=== PATIENT | male | born 1970 | race Caucasian/White ===

== ENCOUNTER 2021-01-28 07:24 | Observation (INO) ==
--- NOTE | 2021-01-10 10:53 | PAT Medication Instructions ---
Medication Instructions Date of Service January 10, 2021 Home Medications azathioprine [Imuran] 50 mg PO BID azathioprine [Imuran] 75 mg PO HS sertraline [Zoloft] 50 mg PO QAM ASK your prescriber and surgeon azathioprine [Imuran] 50 mg PO BID azathioprine [Imuran] 75 mg PO HS Take morning of surgery With a small sip of water, OTHERWISE NOTHING TO EAT OR DRINK AFTER MIDNIGHT: sertraline [Zoloft] 50 mg PO QAM Other Notes If you have any questions please call us at [phone] or [phone] or [phone] or [phone]
--- NOTE | 2021-01-14 09:50 | Anesthesiology Consultation ---
Date of Service January 14, 2021 Assessment & Plan (1) Encounter for pre-operative examination: Chart Review Chart Review: Acceptable Risk for Surgery (pending surgeon ordered PCP clearance, attempt at last neuromuscular office note/response from neuromuscular specialist, and preop Covid testing results ) and Patient seen in Pre Admission Testing - Awaiting surgeon ordered PCP clearance 01/21/21 - Will attempt to get last neuromuscular medicine note from [facility] - will also inquire if neuromuscular specialist has any special recommendations re garding anesthesia Per PAT appt on 01/14/21, pt resides in [facility]- local travel only. Denies any out of state travel. Wears mask in public. No known Covid positive contacts or Covid related symptoms. No known Covid infection in the past 90 days. Preop C ovid testing scheduled 01/23/21 at [facility]= will await results. Educated on importance of self quarantining, social distancing and wearing mask in public both for the patient and household contacts. Teaching & Discussion Pre-Anesthesia Teaching/Discussion Notes: Instructed NPO after midnight before surgery,except medications with 15 cc of water. Medication instructions provided according to the PAT guidelines. History Surgery Operation Date: 01/28/21 13:10 Proposed Procedures p Right Total Shoulder Arthroplasty - Josué Terrell MD Height/Weight Height: 6 ft 1 in Weight: 122.6 kg Allergies Allergy/AdvReac Type Severity Reaction Status Date / Time No Known Allergies Allergy Verified 01/09/21 15:33 Medications Home Medications Medication Instructions Recorded Confirmed Last Taken azathioprine [Imuran] 50 mg PO BID 01/09/21 01/09/21 Unknown azathioprine [Imuran] 75 mg PO HS 01/09/21 01/09/21 Unknown sertraline [Zoloft] 50 mg PO QAM 01/09/21 01/09/21 Unknown Past Medical History Medical History (Updated 01/14/21 @ 10:17 by Mariam Tate PA-C) Anxiety CIDP (chronic inflammatory demyelinating polyneuropathy) Reason for imuran Stable - follows with [facility] [place] - Ashli Starr Shama Recently started on IVIG infusions in preparation for surgery NONA (obstructive sleep apnea) Recently dx'ed- in process of getting CPAP Exercise / Class Metabolic Activity II 4-5 Yardwork/Stairs/Walk up hill (one flight of stairs- no chest pain or SOB ) Past Family History Family History Grandmother (Maternal) Family hx of colon cancer Other No family history of adverse response to anesthesia Past Surgical History Surgical History History of removal of cyst "bony cyst removed from top of forehead" History of shoulder surgery Bone spurs removed from right shoulder, 2010 Hx of vasectomy Past Anesthesia History No Hx of Anesthesia Complications and No Family Hx of Anesthesia Complications History of PONV No Hx of PONV and No Hx of Motion Sickness Social History Smoking Status: Never smoker Do You Dip or Chew Tobacco: No Hx Alcohol Use: No Hx Substance Use: No substance use type: does not use Review of Systems Hx of snoring - did have recent sleep study- in the process of getting a CPAP Patient denies chest pain, shortness of breath, dyspnea on exertion, reflux, cough, wheezing, palpitations. No hx of seizures, stroke, CA. No hx of blood clots or blood transfusions Physical Exam Vital Signs VITALS BP 112/73 P 55 TEMP 98.1 SP02 98% RESP 16 Constitutional no acute distress ENMT Mouth: no TMJ clicking Thyromental Distance: > or= 3.5 Finger Breadths (3.5) Mallampati Class: III Denies loose or missing teeth Neck + thick neck; neck extension not limited Respiratory normal respiratory effort; no respiratory distress Auscultation: lungs clear to auscultation bilaterally; no wheezes Cardiovascular Rate/Rhythm: regular rate and regular rhythm Heart Sounds: no murmur Vessels: no carotid bruit Musculoskeletal Spine: no pain with cervical ROM Extremities: extremities normal to inspection Psychiatric Orientation: alert Testing Laboratory Results 01/14/21 10:22 01/14/21 10:22 PT 9.7 Seconds (9.0-12.0) 01/14/21 10: INR 1.0 (0.9-1.1) 01/14/21 10:22 APTT 24.5 Seconds (21.0-31.0) 01/14/21 10:22 Hemoglobin A1c 5.9 % (4.5-5.6) H 01/14/21 10:22 Urine Color Yellow 05/03/21 10:22 Urine Appearance Clear (Clear) 01/14/21 10:22 Urine pH 5.0 (4.5-7.5) 01/14/21 10:22 Ur Specific [place] 1.025 (1.000-1.030) 01/14/21 10:22 Urine Protein Negative (Negative) 01/14/21 10:22 Urine Glucose (UA) Negative (Negative) 01/14/21 10:22 Urine Ketones Trace (Negative) H 01/14/21 10:22 Urine Nitrite Negative (Negative) 01/14/21 10:22 Ur Leukocyte Esterase Negative (Negative) 01/14/21 10:22 Blood Type A Positive 01/14/21 10: Antibody Screen NEGATIVE 01/14/21 10:22 Electrocardiogram Date: 01/14/21 Findings: + SB @ (50bpm) Otherwise normal EKG per cardio. Chest X-Ray Date: 01/14/21 Findings: + NAD Cardiomediastinal and hilar silhouettes are within normal limits. No pneumothorax, pleural effusion, airspace consolidation or overt pulmonary edema. The lateral left costophrenic angle is partially excluded from the field-of-vi ew. Degenerative changes of the shoulders and spine.
--- NOTE | 2021-01-14 10:57 | XRay Report ---
XR chest Pre-admission PA/Lat HISTORY: 50 years-old Male pat chronic degenerative joint disease COMPARISON: None TECHNIQUE: PA and lateral views of the chest FINDINGS: Cardiomediastinal and hilar silhouettes are within normal limits. No pneumothorax, pleural effusion, airspace consolidation or overt pulmonary edema. The lateral left costophrenic angle is partially exc luded from the [id number]. Degenerative changes of the shoulders and spine. IMPRESSION: No acute process. ACT 112: Negative or not required by law. The above report was generated using voice recognition software. It may contain grammatical, syntax o r spelling errors. Electronically signed by: Isidro Blankenship M.D. 01/14/2021 10:56 AM
[2021-01-14 10:58] LABS: Eosinophils # (auto) 0.03 K/uL (0-0.5); Eosinophils % (auto) 0.9 %; Hematocrit (blood only) 42.2 % (42-52); Hemoglobin 14.8 g/dL (14.0-18.0); Lymphocytes # (auto) 0.95 K/uL (1.2-3.4); Lymphocytes % (auto) 28.2 %; Mean Corpuscular Hemoglobin 30.6 pg (25-34); Mean Corpuscular Hgb Conc 35.1 g/dL (32-36); Mean Corpuscular Volume 87.2 fL (80-100); Mean Platelet Volume 10.1 fL (7.4-10.4); Monocytes # (auto) 0.25 K/uL (0.11-0.59); Monocytes % (auto) 7.4 %; Neutrophils # (auto) 2.14 K/uL (1.4-6.5); Neutrophils % (auto) 63.5 %; Platelet Count 241 K/uL (130-400); RDW Coefficient of Variation 13.7 % (11.5-14.5); RDW Standard Deviation 43.5 fL (36.4-46.3); Red Blood Count 4.84 M/uL (4.7-6.1); White Blood Count 3.37 K/uL (4.8-10.8)
[2021-01-14 11:00] LABS: Appearance Urine Clear (Clear); Bilirubin Urine Negative (Negative); Blood Urine Negative (Negative); Color Urine Yellow; Glucose Urine UA Negative (Negative); Ketones Urine Trace (Negative); Leukocyte Esterase Urine Negative (Negative); Nitrite Urine Negative (Negative); Protein Urine Negative (Negative); Specific Gravity Urine 1.025 (1.000-1.030); Urobilinogen Urine Negative (Negative)
[2021-01-14 11:21] LABS: Partial Thromboplastin Ratio 0.9; Partial Thromboplastin Time 24.5 Seconds (21.0-31.0); Prothrombin Time 9.7 Seconds (9.0-12.0)
[2021-01-14 12:01] LABS: Estimated Average Glucose 123 mg/dl; Hemoglobin A1C 5.9 % (4.5-5.6)
[2021-01-14 12:16] LABS: Albumin Level 3.4 gm/dl (3.4-5.0); BUN Creatinine Ratio 23.5 (10-20); Calcium 9.3 mg/dl (8.5-10.1); Creatinine Clr Calc Pharmacy 153.4 ml/min; Est GFR (African American) 121.4; Est GFR (Non-African American) 104.7
--- NOTE | 2021-01-14 12:37 | Electrocardiogram Report ---
Test Reason : Blood Pressure : / mmHG Vent. Rate : 050 BPM Atrial Rate : 050 BPM P-R Int : 196 ms QRS Dur : 080 ms QT Int : 412 ms P-R-T Axes : 064 075 038 degrees QTc Int : 375 ms Sinus bradycardia Otherwise normal ECG No previous ECGs available Confirmed by Zane Kowalski ([id number]) on 01/14/2021 12:37:26 PM Referred By: Josué Terrell Confirmed By:Zane Kowalski
--- NOTE | 2021-01-26 20:12 | History & Physical Report ---
Date of Service January 26, 2021 Assessment & Plan (1) Primary osteoarthritis, right shoulder: Treatment options discussed with patient. He has failed conservative measures. He would like to proceed with surgical intervention. Risks, benefits and alternatives to surgery including but not limited to infection, DVT, pain, stiffness, need for revision surgery, damage to blood vessels, damage to nerves, PE, , were discussed with the patient and they wish to proceed. Plan for right OVO motion total shoulder arthroplasty at [facility] on . He cannot stop the Imuran other than the day of surgery. Will plan on 2 weeks for cefadroxil post operatively as a precaution due to increased risk of infection with the Imuran. All questions answered. Patient will follow up post operatively. History of Present Illness Chief Complaint: Right shoulder pain Primary Care Provider: NO PCP 50 year old male with PMHx significant for CIDP on Imuran and IVIG therapy, axiety, and NONA presents with longstanding right shoulder pain. He has endstage OA right shoulder. Pain interfering with his daily activities. He has tried and failed conservative measures and would like to proceed with surgical intervention. Patient denies headaches, sweats, fevers, chills, double vision, blurred vision, cough, sore throat, dysphagia, chest pain, sob, wheezing, n/v/ d/c, numbness, tingling, fatigue, urinary symptoms, mood disorders. ROS positive for right shoulder pain and stiffness. Allergies Allergy/AdvReac Type Severity Reaction Status Date / Time No Known Allergies Allergy Verified 01/09/21 15:33 Home Medications Medication Instructions Recorded Confirmed Type azathioprine [Imuran] 50 mg PO BID 01/09/21 01/09/21 History azathioprine [Imuran] 75 mg PO HS 01/09/21 01/09/21 History sertraline [Zoloft] 50 mg PO QAM 01/09/21 01/09/21 History Past Med/Surg History Medical History (Updated 01/26/21 @ 20:21 by Sandro Pastrana) Anxiety CIDP (chronic inflammatory demyelinating polyneuropathy) Reason for imuran Stable - follows with Sandro [place] - Ashli Starr Shama Recently started on IVIG infusions in preparation for surgery NONA (obstructive sleep apnea) Recently dx'ed- in process of getting CPAP Surgical History History of removal of cyst "bony cyst removed from top of forehead" History of shoulder surgery Bone spurs removed from right shoulder, 2010 Hx of vasectomy Family History Grandmother (Maternal) Family hx of colon cancer Other No family history of adverse response to anesthesia Social History (Updated 10/04/19 @ 14:25 by Kaley Bernal) Smoking Status: Never smoker Second Hand Exposure: Yes (in childhood--father smoked); Hx Alcohol Use: No Hx Substance Use: No Preferred Language: Estonian Communication Ability: Effective Supervisor Nuclear Medicine Required: No Beliefs That Will Affect Care: None Current Living Situation: Significant Other Feels Safe at Home: Yes Assistive Devices: None Review of Systems All systems reviewed & are unremarkable except as noted in HPI & below Physical Exam Constitutional: well developed and well nourished; no acute distress Eyes: PERRL, conjunctivae normal, anicteric sclerae ENMT: external ear and nose normal, oropharynx normal Neck: trachea midline, no thyromegaly Respiratory: normal respiratory effort, lungs clear to auscultation Cardiovascular: RRR, no murmur, no edema Musculoskeletal: Right shoulder: Diffuse tenderness, tender anterior glenoid. Pain and crepitation with active ROM. Edis deformity due to previous biceps tendon rupture. Active FF to 70 degrees, abduction to 60 degrees, ER to 10 degrees. Strength equal bilaterally Skin: no rashes, warm and dry Neurologic: patellar DTR's 2+ bilat, sensation intact Psychiatric: A+Ox3, euthymic affect Results & Data ([facility]) Diagnostic Findings Right shoulder: 4 views right shoulder. End-stage osteoarthritis with flattening of the humeral head, loss of glenohumeral joint space, large inferior humeral head osteophyte, subchondral cyst and sclerosis formation. MRI demonstrates eburnation subchondral bone edema possible some subchondral collapse of the humeral head with degeneration glenoid labrum and large intra- articular loose bodies and subcoracoid recess area
[~2021-01-28 07:24] MED LIST: ACETAMINOPHEN 500 MG TAB PO SCH; CeleBREX 200 MG CAP PO SCH; FAMOTIDINE 20 MG TAB PO SCH; GABAPENTIN 900 MG DOSE PO SCH; LR 15ML/HR IV SCH; METOCLOPRAMIDE HCL 10 MG TABLET PO SCH; TRANEXAMIC ACID 1,000 MG **IV Intra-op IV SCH; TRANEXAMIC ACID 1,000 MG **IV Pre-op IV SCH; dexAMETHasone 4 MG TAB PO SCH
[2021-01-28] MEDS ORDERED: BUPIVACAINE 0.5 % 5 MG/1 ML PF 10ML VIAL ONE (07:29)
[2021-01-28] MEDS ORDERED: DEXAMETHASONE SOD INJ 4 MG/ML VIAL ONE (08:46)
[2021-01-28] MEDS ORDERED: PROPOFOL IV EMULSION 10 MG/ML 20 ML VIAL IV ONE (08:46)
[2021-01-28] MEDS ORDERED: ONDANSETRON INJ 2 MG/ML 2 ML VIAL ONE (08:46)
[2021-01-28] MEDS ORDERED: GLYCOPYRROLATE 0.2 MG/ML VIAL ONE ×2 (08:46→12:04)
[2021-01-28] MEDS ORDERED: LIDOCAINE HCL 2% 2 ML VIAL/AMP(20MG/ML) INFIL ONE (08:46)
[2021-01-28] MEDS ORDERED: NEOSTIGMINE METHYLSULFATE 5 MG/5 ML SYR ONE (08:46)
[2021-01-28] MEDS ORDERED: MIDAZOLAM HCL 1 MG/ML 2ML VIAL ONE ×2 (08:46→08:47)
[2021-01-28] MEDS ORDERED: fentaNYL citrate 100 MCG/2 ML VIAL ONE ×2 (08:47→11:56)
--- NOTE | 2021-01-28 09:59 | History & Physical Bridge Note ---
Date of Service January 28, 2021 History & Physical Bridge Note I have examined the patient, reviewed the History & Physical and in the interval since the performance of the History & Physical I have noted the following changes of clinical significance: no changes noted
[2021-01-28] MEDS ORDERED: fentaNYL citrate 100 MCG/2 ML VIAL IV PRN (10:10)
[2021-01-28] MEDS ORDERED: ONDANSETRON INJ 2 MG/ML 2 ML VIAL IV PRN ×2 (10:10→15:32)
[2021-01-28] MEDS ORDERED: ePHEDrine sulfate 50 MG/ML AMP IV PRN (10:10)
[2021-01-28] MEDS ORDERED: ATROPINE SULFATE 0.1 MG/ML 10ML SYR IV PRN (10:10)
[2021-01-28] MEDS ORDERED: EPINEPHrine HCL INJ 1 MG/ML 30ML ONE (10:21)
[2021-01-28] MEDS ORDERED: SUGAMMADEX SODIUM 200 MG/2 ML VIAL IV ONE (10:27)
[2021-01-28] MEDS ORDERED: ROCURONIUM BROMIDE 10 MG/ML 5 ML VIAL IV ONE (11:47)
[2021-01-28] MEDS ORDERED: ePHEDrine sulfate 50 MG/ML AMP ONE (12:04)
--- NOTE | 2021-01-28 14:15 | Operative Report ---
Post Operative Report Pre & Post Diagnosis Operation Date: 01/28/21 09:50 Pre-Op Diagnosis: Primary Osteoarthritis, Right Shoulder Post-Op Diagnosis: Primary Osteoarthritis, Right Shoulder, biceps tendinopathy with multiple loose bodies biceps tendon sheath, multiple glenohumeral and subcoracoid loose bodies I identified the patient and participated in the time-out.: Yes Procedure Operation Date: 01/28/21 09:50 Actual Procedures p Right Total Shoulder Arthroplasty(Right), biceps tenodesis, removal of multiple loose bodies largest approximately 2 x 1 cm subcoracoid and smallest 2 mm- Josué Terrell MD Surgeon Josué Terrell MD Vice President Integrated Humberto ALBERTO Estimated Blood Loss 50 Findings Consistent with Post-Op Diagnosis Grade 4 osteoarthritis of the shoulder chronic synovitis multiple loose bodies biceps tendinopathy chronic biceps tenosynovitis Specimens None Drains 2 Hemovac Anesthesia Type General Regional Complications none Disposition Accompanied Patient To Recovery: No Disposition: Recovery Room Indications 50-year-old male with chronic progressive osteoarthritis in his right shoulder. Radiographs demonstrate severe end-stage osteoarthritis large inferior humeral osteophytes loose bodies and [id number] Description of Procedure Patient was placed placed under regional block and general anesthetic. The right upper extremity had a towel roll placed on the medial border of the scapula and translated to the side of the bed so it could be manipulated off of the bed as necessary. A foam headrest was placed and protective eyewear was placed. Lower extremities were well-padded. Patient was positioned in a beachchair position approximately 40 degrees. Shoulder exam demonstrated an obese arm and shoulder area. Forward flexion was 130 degrees abduction was 70 degrees external rotation was 30 degrees and rotation was 40 degrees. The right upper extremity was prepped and draped in sterile fashion. A deltopectoral approach was performed with a longitudinal incision in a deltopectoral interval. The skin was incised sharply and the subcutaneous flaps were elevated. The cephalic vein was dissected out and retracted laterally with the deltoid. The clavipectoral fascia was divided at the lateral margin of the conjoined tendon and extended up to the CA ligament. A self-retaining retractor was placed. Biceps findings demonstrated marked biceps tendinopathy and chronic tenosynovitis with multiple loose bodies within the biceps tendon sheath. A biceps tenosynovectomy was performed and the multiple loose bodies were resected.. Biceps tendon was tenodesed to the pectoralis with [id number] #2 FiberWire sutures. The chronic tenosynovitis was resected and the proximal biceps resected. The circumflex vessels were tied off with silk ties and divided laterally. The subscapularis muscle fibers were at the level of the circumflex vessels dissection was taken down to the capsule and a Kitner elevator was used to release the inferior fibers of the capsule protecting the axillary nerve inferiorly. A blunt Hohmann retractors were placed between the inferior located axillary nerve and the capsule. This was verified with a tug test. The rotator interval was opened up and extended down to the glenoid. The subscapularis was taken down with a transtendinous incision leaving a cuff of tissue for repair on the lesser tuberosity. The incision was carried through the subscapularis to the capsule and then subperiosteally along the inferior capsule exposing the inferior humeral osteophytes. These demonstrated very large inferior humeral osteophytes from anterior to posterior.. The osteophytes were resected with an artist chisel and rongeur. The humeral head findings demonstrated central region of bone loss with red softened irritated bone more softened and eburnated. There is grade 4 osteoarthritis and humeral head with circumferential osteophytes. More osteophytes were resected around the humeral articular surface. After the osteophytes were resected humeral head was retracted posterior to the glenoid with a Fukuda retractor. The glenoid findings demonstrated 50% of the glenoid was close to being down to bone with almost a B2 type beginning of the arthritic wear. The superior articular surface was still intact the anterior articular surface was still intact it was mostly the posterior inferior 45% of the glenoid that had wear.. The labrum was resected and the biceps tendon resected. A 360 degree release of the subscapularis was performed. Appropriate releases were performed about the glenoid. Subperiosteal release with electrocautery on the glenoid anterior and inferior and also utilizing a small Moreno elevator to perform that release. Upon completion of the releases the humeral head was reexposed with retractors and humeral head was sized for a size 52 x 48 Arthrosurface OVO motion humeral head. The central guidepin was placed. The threaded stop for the reamer was drilled into the head. This was placed at the appropriate depth slightly proud due to the bone loss to help reestablish normal height of the bone.. The head reamer was used. All debris was irrigated out of the joint. The flat head resection reamer was used. The remaining section of bone was removed with a saw. The humerus was then retracted posteriorly again with the Fukuda retractor posterior to the glenoid. I did a curette at the inferior aspect but were going to place the implant creating all the remaining cartilage office we can get the true version of the glenoid. The superior cartilage was left intact. The guide for the glenoid component was placed and the guide pin was advanced to the appropriate depth. Glenoid reamers were utilized. The depth gauge verified the depth of the reaming. The drill hole for the central post was placed. Trial component was placed at satisfactory position and depth. Trial was removed and the glenoid reamed area was prepared for cementing with several drill holes placed around the reamed area to accept cement. After further irrigation the reamed area was packed with epinephrine soaked tampon sponges. The [place] cement was vacuum mixed. The cement was injected into the glenoid and compressed with a finger compression device. More cement was placed on the back of the glenoid component and it was inserted into the reamed area in appropriate position with the suction device that held onto the component. When the component was appropriate seating position the suction was removed as well as a suction device and direct pressure was placed on of the component and excess cement was cleared and the component was held in position until the cement fully cured. Attention was taken back to the humerus. The humeral head guide was placed onto the humeral head in the appropriate position. The 12 mm tapered post was inserted to appropriate depth with excellent fixation. At this time 3 drill holes were made along the lateral surface of the lesser tuberosity spanning the distance of the subscapularis attachment and 3 transosseous #5 FiberWire sutures were placed for repair of the subscapularis. After copious irrigation the Mckeon taper of the tapered post was dried and then the humeral component size 48 x 52 OVO motion Arthrosurface humeral head component was impacted onto the taper post with stable fixation. This was assessed with a Moreno elevator to be stable. This was then reduced to the glenoid and range of motion and stability was assessed. After copious irrigation the subscapularis was repaired with the #5 FiberWire sutures using Mars-Howard suture technique and lateral row soft tissue repair with #2 FiberWire [id number]-gn-[id number] sutures and the rotator interval was closed in maximal external rotation with interrupted #2 FiberWire sutures. Pectoralis tendon was repaired with [id number]-wm-[id number] 2-0 FiberWire suture in f akrgq-gy-[id number] fashion passing sutures through the biceps tendon to reinforce the biceps tenodesis. Range of motion was assessed demonstrating 150 degrees forward elevation 90 degrees abduction external rotation 70 degrees and rotation 60 degrees without any tension on the repair. The wound was copiously irrigated and 2 Hemovac drains were placed brought out laterally. The deltopectoral interval was repaired with tlbdnx-eh-rytwj #1 Vicryl sutures and the subcutaneous tissues were closed into 2-0 Vicryl sutures and skin closed with tim and services were applied and a shoulder immobilizer. The patient tolerated the procedure well. Humberto ALBERTO my physician advertising assistant assisted in the procedure with arm positioning soft tissue retraction instrument management suture management and performed the subcutaneous and skin closure dressings and shoulder immobilizer application and will participate in the postop care the patient. I attest to the content of the Intraoperative Record and any orders documented therein. Any exceptions are noted below.
--- NOTE | 2021-01-28 14:50 | XRay Report ---
XR shoulder RT min 2V routine CLINICAL HISTORY: Post shoulder surgery COMPARISON STUDY: None. FINDINGS: 2 views of the right shoulder demonstrate resurfacing at the humeral head. The hardware denise ears intact. No fracture or dislocation. Skin tim and surgical drains are in place. IMPRESSION: Status post right humeral head resurfacing. The hardware appears intact. ACT 112: Negative or not required by law. Electronically signed by: Jack Tripp M.D. 01/28/2021 2:49 PM
--- NOTE | 2021-01-28 14:53 | Anesthesiology Progress Note ---
Date of Service January 28, 2021 Anesthesia Post Procedure Vital Signs Vital Signs: Temp Pulse Pulse Resp BP Pulse Ox 01/28/21 14:50 37.4 C 80 14 139/88 92 01/28/21 14:40 85 18 148/90 H 90 01/28/21 14:30 91 H 19 136/71 90 01/28/21 14:20 81 19 143/92 H 90 01/28/21 14:13 37.0 C 80 16 141/90 H 94 01/28/21 08:31 37 C 62 18 123/87 95 Transfer of Care Handoff Completed per policy Notes Mental Status: alert / awake / arousable Patient Amnestic to Procedure: Yes Nausea / Vomiting: adequately controlled Pain: adequately controlled Airway Patency, RR, SpO2: stable & adequate BP & HR: stable & adequate Hydration State: stable & adequate Anesthetic Complications: no major complications apparent
[2021-01-28] MEDS ORDERED: MAGNESIUM HYDROXIDE SUSP 30 ML UDC PO PRN (15:32)
[2021-01-28] MEDS ORDERED: TAMSULOSIN HCL 0.4 MG CAP PO PRN (15:32)
[2021-01-28] MEDS ORDERED: NALOXONE HCL 0.4 MG/1 ML VIAL/CARP IV PRN (15:32)
[2021-01-28] MEDS ORDERED: HYDROmorphone INJ 0.5 MG/0.5 ML SYR IV PRN (15:32)
[2021-01-28] MEDS ORDERED: bisacodyL 10 MG SUPP PR PRN (15:32)
[2021-01-28] MEDS ORDERED: METOCLOPRAMIDE HCL INJ 5 MG/ML 2 ML VIAL IV PRN (15:32)
--- NOTE | 2021-01-28 15:52 | Hospitalist Consultation ---
Date of Consultation January 28, 2021 Assessment & Plan (1) Primary osteoarthritis, right shoulder: Patient underwent right total shoulder arthroplasty on 01/28/[address] Josué Terrell pain medications and dressing changes will be held with the surgical team (2) CIDP (chronic inflammatory demyelinating polyneuropathy): Patient typically taking 3 weeks IVIG last dose 01/25/2021, remains on azathioprine 175 a day given in divided doses of 50 at 8 AM 50 at lunch and 75 at bedtime Patient was first diagnosed in 2004 eventually had this stabilized in 2005 with a combination of IgG and Imuran dosing. This was through [facility] neurology. Patient then in 2010 was doing well and was eventually tapered off all treatment. Patient was doing well until the fall 2019 when he had remission of his weakness and was reinitiated on the IgG and Imuran dosing which he remains on till today. The reinstitution of these medications resolved his neurological weakness. His neurologist is aware of his surgery want to keep him on this dosing through his surgical convalescence and then consider tapering him once again as he is returned to full function (3) Impaired glucose tolerance: Patient has a history of impaired glucose tolerance at one time being on Metformin he was given intraoperative dexamethasone 8 mg. Will not institute pursue sliding scale at this time but if his glucoses are elevated on morning serology consideration for tighter glucose control could be warranted (4) NONA (obstructive sleep apnea): (5) Anxiety: Maintain home Zoloft therapy History of Present Illness Attending Physician: Josué Terrell MD 01/28/21 Right Total Shoulder Arthroplasty Patient has history of chronic inflammatory demyelinating polyneuropathy who is been maintained on Imuran and immunoglobulin IgG therapy since 2005 with attempts at reducing his therapy resulting in recurrence of symptoms, subsequently the patient sees [facility] neurology for this and was cleared medically to proceed with surgery on these medications. Otherwise he is impaired glucose tolerance but last A1c was 6 does suffer from obstructive sleep apnea and depression otherwise Allergies Allergy/AdvReac Type Severity Reaction Status Date / Time No Known Allergies Allergy Verified 01/28/21 08:21 Home Medications Medication Instructions Recorded Confirmed Type azathioprine [Imuran] 50 mg PO BID 01/09/21 01/28/21 History azathioprine [Imuran] 75 mg PO HS 01/09/21 01/28/21 History sertraline [Zoloft] 50 mg PO QAM 01/09/21 01/28/21 History Patient History Medical History (Updated 01/28/21 @ 15:51 by John Farley MD) Anxiety CIDP (chronic inflammatory demyelinating polyneuropathy) Reason for imuran Stable - follows with [facility] - [facility] Sesay Recently started on IVIG infusions in preparation for surgery NONA (obstructive sleep apnea) Recently dx'ed- in process of getting CPAP Surgical History History of removal of cyst "bony cyst removed from top of forehead" History of shoulder surgery Bone spurs removed from right shoulder, 2010 Hx of vasectomy Family History Grandmother (Maternal) Family hx of colon cancer Other No family history of adverse response to anesthesia Social History (Updated 10/04/19 @ 14:25 by Kaley Bernal) Smoking Status: Never smoker Second Hand Exposure: Yes (in childhood--father smoked); Do You Dip or Chew Tobacco: No; Tobacco Cessation Education Requested by Patient: No Hx Alcohol Use: No Hx Substance Use: No Preferred Language: Kyrgyz Communication Ability: Effective 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 Beliefs That Will Affect Care: None Current Living Situation: Significant Other Other Information That Helps Us Care for You: No Feels Safe at Home: Yes Safety Concerns: Feels Safe At This Time Assistive Devices: None Review of Systems Review of Systems: Mild distress and fatigue no headache, blurry or double vision no speech or swallowing issues no chest pain, pressure or palpitations no shortness of breath, cough or wheezes no abdominal pain, nausea or vomiting, diarrhea or constipation no dysuria, hematuria or frequency no focal joint pain or swelling no back pain, CVA tenderness or radicular pain no bruising, bleeding or rashes no focal signs of weakness or numbness or altered sensation no complaints of anxiety or depression.. Physical Exam Physical Exam: The patient appeared well nourished and normally developed. Vital signs as documented. Head exam is normocephalic atraumatic Neck is without JVD, thyromegaly, or carotid bruits. Lungs are clear to auscultation, no focal loss of breath sounds Cardiac exam, Rhythm is regular.. No murmurs, rubs or gallops. Abdominal exam reveals normal bowel sounds, soft non tender, no masses Extremities are nonedematous and both pedal pulses are present Neurologic exam is alert and oriented, no focal loss of strength or sensation Skin is without bruises or rashes Psychologically is without concerns for anxiety or depression Results & Data Results & Data ([facility]) Vital Signs (Past 12 Hours) Vital Signs Temp Pulse Pulse Resp BP Pulse Ox 01/28/21 15:10 99.3 F 86 22 138/94 92 01/28/21 15:00 99.3 F 88 17 145/92 H 92 01/28/21 14:50 99.3 F 80 14 139/88 92 01/28/21 14:40 85 18 148/90 H 90 01/28/21 14:30 91 H 19 136/71 90 01/28/21 14:20 81 19 143/92 H 90 01/28/21 14:13 98.6 F 80 16 141/90 H 94 01/28/21 08:31 98.6 F 62 18 123/87 95 PG Care Time/CCT Total # of Minutes Spent Total Time Spent with Patient: Total time spent is greater than 50% in coordination of care (as documented) at patient's floor/unit and/or counseling patient: Coding Level of Care Code 57109 Inpt Consult Level 4 Diagnoses Primary osteoarthritis, right shoulder M19.011 CIDP (chronic inflammatory demyelinating polyneuropathy) G61.81 Impaired glucose tolerance R73.02 NONA (obstructive sleep apnea) G47.33 Anxiety F41.9
[2021-01-28] MEDS: SODIUM CHLORIDE 0.9% 1000ML 1,000 ML IV SCH (16:07)
[2021-01-28] MEDS: ceFAZolin 2000MG 2,000 MG/15 ML SYR IV SCH (17:21)
--- NOTE | 2021-01-28 19:02 | Operative Report (OR) ---
DATE OF OPERATION: 01/28/2021 ADDENDUM Once the glenohumeral joint was exposed, we did notice there was a large subcoracoid loose body, which was about a 1 x 2 cm. There was another smaller one along with it. This was excised. Also within the joint, there were multiple loose bodies embedded in the synovium. Possibly this could be a sign of. Dictation Ends Here I attest to the content of the Intraoperative Record and any orders documented therein. Any exception s are noted below.
--- NOTE | 2021-01-28 19:04 | Operative Report (OR) ---
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 I attest to the content of the Intraoperative Record and any orders documented therein. Any exception s are noted below.
[2021-01-28] MEDS: DOCUSATE SODIUM 100 MG CAP PO SCH (20:36)
[2021-01-28] MEDS ORDERED: SENNA 8.6 MG TAB PO SCH (21:00)
[2021-01-28] MEDS: ACETAMINOPHEN 500 MG TAB PO SCH (21:54)
[2021-01-29] MEDS: ceFAZolin 2000MG 2,000 MG/15 ML SYR IV SCH (01:47)
[2021-01-29] MEDS: SODIUM CHLORIDE 0.9% 1000ML 1,000 ML IV SCH (02:53)
[2021-01-29] MEDS: ACETAMINOPHEN 500 MG TAB PO SCH ×2 (05:52→13:01)
[2021-01-29 06:57] LABS: Hematocrit (blood only) 40.7 % (42-52); Hemoglobin 14.1 g/dL (14.0-18.0); Immature Granulocytes # (auto) 0.01 K/uL (0.00-0.02); Immature Granulocytes % (auto) 0.2 %; Lymphocytes # (auto) 0.67 K/uL (1.2-3.4); Lymphocytes % (auto) 11.6 %; Mean Corpuscular Hemoglobin 31.1 pg (25-34); Mean Corpuscular Hgb Conc 34.6 g/dL (32-36); Mean Corpuscular Volume 89.6 fL (80-100); Mean Platelet Volume 10.1 fL (7.4-10.4); Monocytes # (auto) 0.54 K/uL (0.11-0.59); Monocytes % (auto) 9.3 %; Neutrophils # (auto) 4.56 K/uL (1.4-6.5); Neutrophils % (auto) 78.9 %; Platelet Count 227 K/uL (130-400); RDW Coefficient of Variation 14.1 % (11.5-14.5); RDW Standard Deviation 46.4 fL (36.4-46.3); Red Blood Count 4.54 M/uL (4.7-6.1); White Blood Count 5.78 K/uL (4.8-10.8)
[2021-01-29 07:28] LABS: BUN Creatinine Ratio 19.8 (10-20); Calcium 8.3 mg/dl (8.5-10.1); Creatinine Clr Calc Pharmacy 148.1 ml/min; Est GFR (African American) 119.5 ml/min; Est GFR (Non-African American) 103.1 ml/min; Potassium 4.4 mmol/L (3.5-5.1)
--- NOTE | 2021-01-29 08:05 | Orthopedic Progress Note ---
Date of Service January 29, 2021 Assessment & Plan (1) Primary osteoarthritis, right shoulder: Postop day 1 status post right total shoulder arthroplasty PT/OT protocols. Nonweightbearing on the right upper extremity. DVT prophylaxis and pain management as written. DC planning-outpatient PT when discharged home Admission and Anticipated Discharge Date Admission Date: January 28, 2021 Subjective Postop day 1 Patient currently sitting up in bed awake and alert. No complaints this morning. He feels that his block is still working on the upper part of his extremity. He states that he has some residual numbness in his right thumb. States all other fingers have normal sensation. Denies shortness of breath, chest pain, lightheadedness. Pain is controlled. Physical Exam Physical Exam: Dressings are clean, dry, and intact. Mild residual numbness in his right thumb however he has good range of motion of his fingers and wrist and has good strength. Cap refills less than 2 seconds. Hemovac had 25 mL from the previous shift. Results & Data ([facility]) Vital Signs (Past 12 Hours) Vital Signs Temp Pulse Resp BP Pulse Ox 01/29/21 02:51 36.5 C 69 18 144/93 H 90 01/28/21 23:21 37.2 C 85 20 130/87 91 Laboratory Results Laboratory Results WBC 5.78 K/uL (4.8-10.8) 01/29/21 06:15 RBC 4.54 M/uL (4.7-6.1) L 01/29/21 06:15 Hgb 14.1 g/dL (14.0-18.0) 01/29/21 06:15 Hct 40.7 % (42-52) L 01/29/21 06:15 MCV 89.6 fL (80-100) 01/29/21 06:15 MCH 31.1 pg (25-34) 01/29/21 06:15 MCHC 34.6 g/dL (32-36) 01/29/21 06:15 RDW Std Deviation 46.4 fL (36.4-46.3) H 01/29/21 06:15 RDW Coeff of [place] 14.1 % (11.5-14.5) 01/29/21 06:15 Plt Count 227 K/uL (130-400) 01/29/21 06:15 MPV 10.1 fL (7.4-10.4) 01/29/21 06:15 Immature Gran % (Auto) 0.2 % 01/29/21 06:15 Neut % (Auto) 78.9 % 01/29/21 06:15 Lymph % (Auto) 11.6 % 01/29/21 06:15 [place] % (Auto) 9.3 % 01/29/21 06:15 Eos % (Auto) 0.0 % 01/29/21 06:15 Baso % (Auto) 0.0 % 01/29/21 06:15 Neut # (Auto) 4.56 K/uL (1.4-6.5) 01/29/21 06:15 Lymph # (Auto) 0.67 K/uL (1.2-3.4) L 01/29/21 06:15 [place] # (Auto) 0.54 K/uL (0.11-0.59) 01/29/21 06:15 Eos # (Auto) 0.00 K/uL (0-0.5) 01/29/21 06:15 Baso # (Auto) 0.00 K/uL (0-0.2) 01/29/21 06:15 Immature Gran # (Auto) 0.01 K/uL (0.00-0.02) 01/29/21 06:15 PT 9.7 Seconds (9.0-12.0) 01/14/21 10:22 INR 1.0 (0.9-1.1) 01/14/21 10:22 APTT 24.5 Seconds (21.0-31.0) 01/14/21 10:22 PTT Ratio 0.9 01/14/21 10:22 Sodium 138 mmol/L (136-145) 01/29/21 06:15 Potassium 4.4 mmol/L (3.5-5.1) 01/29/21 06:15 Chloride 105 mmol/L (98-107) 01/29/21 06:15 Carbon Dioxide 32 mmol/L (21-32) 01/29/21 06:15 Anion Gap 1.0 (3-11) L 01/29/21 06:15 BUN 16 mg/dl (7-18) 01/29/21 06:15 Creatinine 0.82 mg/dl (0.6-1.4) 01/29/21 06:15 Est Cr Clr Drug Dosing 148.1 ml/min 01/29/21 06:15 Est GFR ( Amer) 119.5 ml/min 01/29/21 06:15 Est GFR (Non-Af Amer) 103.1 ml/min 01/29/21 06:15 BUN/Creatinine Ratio 19.8 (10-20) 01/29/21 06:15 Glucose 125 mg/dl (70-99) H 01/29/21 06:15 Estimat Average Glucose 123 mg/dl 01/14/21 10:22 Hemoglobin A1c 5.9 % (4.5-5.6) H 01/14/21 10:22 Calcium 8.3 mg/dl (8.5-10.1) L 01/29/21 06:15 Albumin 3.4 gm/dl (3.4-5.0) 01/14/21 10:22 Urine Color Yellow 01/14/21 10:22 Urine Appearance Clear (Clear) 01/14/21 10:22 Urine pH 5.0 (4.5-7.5) 01/14/21 10:22 Ur Specific [place] 1.025 (1.000-1.030) 01/14/21 10:22 Urine Protein Negative (Negative) 01/14/21 10:22 Urine Glucose (UA) Negative (Negative) 01/14/21 10:22 Urine Ketones Trace (Negative) H 01/14/21 10:22 Urine Blood Negative (Negative) 01/14/21 10:22 Urine Nitrite Negative (Negative) 01/14/21 10:22 Urine Bilirubin Negative (Negative) 01/14/21 10:22 Urine Urobilinogen Negative (Negative) 01/14/21 10:22 Ur Leukocyte Esterase Negative (Negative) 01/14/21 10:22 COVID-19 Eval Order Covid19 [facility] 01/28/21 07:46 SARS-CoV-2, RNA, NAAT NEGATIVE (NEGATIVE) 01/28/21 07:46 Blood Type A Positive 01/14/21 10:22 Antibody Screen NEGATIVE 01/14/21 10:22 Electronically signed by: Isidro Blankenship M.D. 01/14/2021 10:56 AM Shoulder X-Ray 01/28/21 14:19 XR shoulder RT min 2V routine CLINICAL HISTORY: Post shoulder surgery COMPARISON STUDY: None. FINDINGS: 2 views of the right shoulder demonstrate resurfacing at the humeral head. The hardware appears intact. No fracture or dislocation. Skin tim and surgical drains are in place. IMPRESSION: Status post right humeral head resurfacing. The hardware appears intact. ACT 112: Negative or not required by law. Electronically signed by: Jack Tripp M.D. 01/28/2021 2:49 PM
--- NOTE | 2021-01-29 08:11 | Hospitalist Progress Note ---
Date of Service January 29, 2021 Assessment & Plan (1) Primary osteoarthritis, right shoulder: POD# 1 s/p right total shoulder arthroplasty on 01/28/[address] Josué Terrell h/h 14.1/40.7 PT/OT/pain management/DVT prophylaxis at discretion of primary service Plans for d/c this afternoon after therapy evals (2) CIDP (chronic inflammatory demyelinating polyneuropathy): Patient typically taking 3 weeks IVIG last dose 01/25/2021, remains on azathioprine 175 a day given in divided doses of 50 at 8 AM 50 at lunch and 75 at bedtime Patient was first diagnosed in 2004 eventually had this stabilized in 2005 with a combination of IgG and Imuran dosing. This was through [facility] neurology. Patient then in 2010 was doing well and was eventually tapered off all treatment. Patient was doing well until the fall 2019 when he had remission of his weakness and was reinitiated on the IgG and Imuran dosing which he remains on till today. The reinstitution of these medications resolved his neurological weakness. His neurologist is aware of his surgery want to keep him on this dosing through his surgical convalescence and then consider tapering him once again as he is returned to full function (3) Impaired glucose tolerance: Patient has a history of impaired glucose tolerance at one time being on Metformin he was given intraoperative dexamethasone 8 mg. Will not institute pursue sliding scale at this time but if his glucoses are elevated on morning serology consideration for tighter glucose control could be warranted A1c 5.9 AM glucose 126 acceptable and plans for d/c as above today Would recommend follow up with PCP at discharge for continued monitoring given hx of being on metformin (4) NONA (obstructive sleep apnea): (5) Anxiety: Maintain home Zoloft therapy Thank you for allowing hospitalist service to participate int he care of Mr. Jenkins. Will sign off at this time. Please call with questions/concerns. Admission and Anticipated Discharge Date Admission Date: January 28, 2021 Subjective Patient evaluated later this morning. Nerve block wearing off. Required dose of toradol. Ride coming this afternoon for d/c. Pain currently controlled. Numbness to R thumb from this morning resolved. Passing gas but no BM. Discussed OTC softeners at d/c given pain medications. No fever, chills, chest pain, shortness of breath, abdominal pain, nausea, vomiting or dysuria reported. Review of Systems Review of Systems: All systems reviewed & are unremarkable except as noted in HPI & below Physical Exam Physical Exam: The patient appeared well nourished and normally developed, sitting up in bed, NAD, comfortable. Head exam is normocephalic atraumatic Neck is without JVD, thyromegaly, or carotid bruits. Lungs are clear to auscultation, no focal loss of breath sounds Cardiac exam, Rhythm is regular.. No murmurs, rubs or gallops. Abdominal: +BS throughout, non-distended, non-tender. no masses Extremities are nonedematous and both pedal pulses are present. R shoulder in sling. Dressing c/d/i. Hemovac intact with bloody drainage. NVI. pulses palpable bilaterally. Neurologic exam is alert and oriented, no focal loss of strength or sensation Skin is without bruises or rashes Psychologically is without concerns for anxiety or depression Results & Data Results & Data ([facility]) Vital Signs (Past 12 Hours) Vital Signs Temp Pulse Resp BP Pulse Ox 01/29/21 08:04 36.7 C 55 L 16 150/98 H 92 01/29/21 02:51 36.5 C 69 18 144/93 H 90 01/28/21 23:21 37.2 C 85 20 130/87 91 Laboratory Results 01/29/21 01/29/21 01/28/21 Range/Units 06:15 06:15 07:46 WBC 5.78 (4.8-10.8) K/uL RBC 4.54 L (4.7-6.1) M/uL Hgb 14.1 (14.0-18.0) g/dL Hct 40.7 L (42-52) % MCV 89.6 (80-100) fL MCH 31.1 (25-34) pg MCHC 34.6 (32-36) g/dL RDW Std Deviation 46.4 H (36.4-46.3) fL RDW Coeff of [place] 14.1 (11.5-14.5) % Plt Count 227 (130-400) K/uL MPV 10.1 (7.4-10.4) fL Immature Gran % (Auto) 0.2 % Neut % (Auto) 78.9 % Lymph % (Auto) 11.6 % [place] % (Auto) 9.3 % Eos % (Auto) 0.0 % Baso % (Auto) 0.0 % Neut # (Auto) 4.56 (1.4-6.5) K/uL Lymph # (Auto) 0.67 L (1.2-3.4) K/uL [place] # (Auto) 0.54 (0.11-0.59) K/uL Eos # (Auto) 0.00 (0-0.5) K/uL Baso # (Auto) 0.00 (0-0.2) K/uL Immature Gran # (Auto) 0.01 (0.00-0.02) K/uL Sodium 138 (136-145) mmol/L Potassium 4.4 (3.5-5.1) mmol/L Chloride 105 (98-107) mmol/L Carbon Dioxide 32 (21-32) mmol/L Anion Gap 1.0 L (3-11) BUN 16 (7-18) mg/dl Creatinine 0.82 (0.6-1.4) mg/dl Est Cr Clr Drug Dosing 148.1 ml/min Est GFR ( Amer) 119.5 ml/min Est GFR (Non-Af Amer) 103.1 ml/min BUN/Creatinine Ratio 19.8 (10-20) Glucose 125 H (70-99) mg/dl Calcium 8.3 L (8.5-10.1) mg/dl SARS-CoV-2, RNA, NAAT NEGATIVE (NEGATIVE) PG Care Time/CCT Total # of Minutes Spent Total Time Spent with Patient: Total time spent is greater than 50% in coordination of care (as documented) at patient's floor/unit and/or counseling patient: Coding Level of Care Code 33485 Subseq Obs Care Lvl 2 Diagnoses Primary osteoarthritis, right shoulder M19.011 CIDP (chronic inflammatory demyelinating polyneuropathy) G61.81 Impaired glucose tolerance R73.02 NONA (obstructive sleep apnea) G47.33 Anxiety F41.9
[2021-01-29] MEDS: azaTHIOprine 50 MG TAB PO SCH ×2 (08:44→11:20)
[2021-01-29] MEDS: oxyCODONE HCL IR 5 MG TAB (IMMEDIATE RELEASE) PO PRN ×2 (08:45→13:01)
[2021-01-29] MEDS: DOCUSATE SODIUM 100 MG CAP PO SCH (08:45)
[2021-01-29] MEDS ORDERED: SERTRALINE HCL 50 MG TABLET PO SCH (09:00)
[2021-01-29] MEDS ORDERED: MULTIVITAMIN TAB PO SCH (09:00)
[2021-01-29] MEDS ORDERED: KETOROLAC 30 MG/ML VIAL IV ONE (10:56)
[2021-01-29] MEDS ORDERED: azaTHIOprine 25 MG TAB PO SCH (21:00)
--- NOTE | 2021-01-30 19:43 | Discharge Summary ---
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 He has endstage OA right shoulder. Pain interfering with his daily activities. He has tried and failed conservative measures and would like to proceed with surgical intervention. Patient denies headaches, sweats, fevers, chills, double vision, blurred vision, cough, sore throat, dysphagia, chest pain, sob, wheezing, n/v/d/c, numbness, tingling, fatigue, urinary symptoms, mood disorders. ROS positive for right shoulder pain and stiffness. Admission Exam Per Admitting Provider Constitutional: well developed and well nourished; no acute distress Eyes: PERRL, conjunctivae normal, anicteric sclerae ENMT: external ear and nose normal, oropharynx normal Neck: trachea midline, no thyromegaly Respiratory: normal respiratory effort, lungs clear to auscultation Cardiovascular: RRR, no murmur, no edema Musculoskeletal: Right shoulder: Diffuse tenderness, tender anterior glenoid. Pain and crepitation with active ROM. Edis deformity due to previous biceps tendon rupture. Active FF to 70 degrees, abduction to 60 degrees, ER to 10 degrees. Strength equal bilaterally Skin: no rashes, warm and dry Neurologic: patellar DTR's 2+ bilat, sensation intact Psychiatric: A+Ox3, euthymic affect Principal Diagnosis Right shoulder osteoarthritis Discharge Exam Constitutional well developed and well nourished; no acute distress Eyes PERRL, conjunctivae normal, anicteric sclerae ENMT external ear and nose normal, oropharynx normal Neck trachea midline, no thyromegaly Respiratory normal respiratory effort, lungs clear to auscultation Cardiovascular RRR, no murmur, no edema Skin no rashes, warm and dry Neurologic patellar DTR's 2+ bilat, sensation intact Psychiatric A+Ox3, euthymic affect Discharge Data Allergies Allergy/AdvReac Type Severity Reaction Status Date / Time No Known Allergies Allergy Verified 01/28/21 08:21 Consultations 01/25/21 10:13 Consult Hospitalist Routine Procedures Performed Operation Date: 01/28/21 09:50 Actual Procedures p Right Total Shoulder Arthroplasty(Right) - Josué Terrell MD Ordered Studies 01/28/21 05:00 US - OR guided needle placemen Routine Hospital Course (1) Primary osteoarthritis, right shoulder: Patient presented for same day admission following right total shoulder arthroplasty on 01/28/21. She tolerated procedure well. The Patient had an uneventful hospital course. Post-operatively, his activity was progressed and well tolerated. They participated in PT without issue. Labs remained stable- lowest hemoglobin recorded: 14.[address] John Farley of medical service was consulted for medical management during admission. Pain controlled on oral medications. Please refer to daily progress notes and PT notes for complete d etails. After exam on 01/29/21, patient was felt to be stable for discharge home with plans on attending outpatient PT. Patient will f/u in the office in about 2 weeks for further evaluation including x-rays and incision check, sooner if having any issues or concerns. Postop day 1 status post right total shoulder arthroplasty PT/OT protocols. Nonweightbearing on the right upper extremity. DVT prophylaxis and pain management as written. DC planning-outpatient PT when discharged home Lab Results 01/14/21 01/14/21 01/14/21 Range/Units 10:22 10:22 10:22 WBC 3.37 L (4.8-10.8) K/uL RBC 4.84 (4.7-6.1) M/uL Hgb 14.8 (14.0-18.0) g/dL Hct 42.2 (42-52) % MCV 87.2 (80-100) fL MCH 30.6 (25-34) pg MCHC 35.1 (32-36) g/dL RDW Std Deviation 43.5 (36.4-46.3) fL RDW Coeff of Roscoe 13.7 (11.5-14.5) % Plt Count 241 (130-400) K/uL MPV 10.1 (7.4-10.4) fL Immature Gran % (Auto) 0.0 % Neut % (Auto) 63.5 % Lymph % (Auto) 28.2 % Garden % (Auto) 7.4 % Eos % (Auto) 0.9 % Baso % (Auto) 0.0 % Neut # (Auto) 2.14 (1.4-6.5) K/uL Lymph # (Auto) 0.95 L (1.2-3.4) K/uL Garden # (Auto) 0.25 (0.11-0.59) K/uL Eos # (Auto) 0.03 (0-0.5) K/uL Baso # (Auto) 0.00 (0-0.2) K/uL Immature Gran # (Auto) 0.00 (0.00-0.02) K/uL PT 9.7 (9.0-12.0) Seconds INR 1.0 (0.9-1.1) APTT 24.5 (21.0-31.0) Seconds PTT Ratio 0.9 Sodium (136-145) mmol/L Potassium (3.5-5.1) mmol/L Chloride (98-107) mmol/L Carbon Dioxide (21-32) mmol/L Anion Gap (3-11) BUN (7-18) mg/dl Creatinine (0.6-1.4) mg/dl Est Cr Clr Drug Dosing ml/min Est GFR ( Amer) Est GFR (Non-Af Amer) BUN/Creatinine Ratio (10-20) Glucose (70-99) mg/dl Estimat Average Glucose mg/dl Hemoglobin A1c (4.5-5.6) % Calcium (8.5-10.1) mg/dl Albumin (3.4-5.0) gm/dl Urine Color Urine Appearance (Clear) Urine pH (4.5-7.5) Ur Specific Kinde (1.000-1.030) Urine Protein (Negative) Urine Glucose (UA) (Negative) Urine Ketones (Negative) Urine Blood (Negative) Urine Nitrite (Negative) Urine Bilirubin (Negative) Urine Urobilinogen (Negative) Ur Leukocyte Esterase (Negative) COVID-19 Eval Order SARS-CoV-2, RNA, NAAT (NEGATIVE) Blood Type A Positive Antibody Screen NEGATIVE 01/14/21 01/14/21 01/14/21 Range/Units 10:22 10:22 10:22 WBC (4.8-10.8) K/uL RBC (4.7-6.1) M/uL Hgb (14.0-18.0) g/dL Hct (42-52) % MCV (80-100) fL MCH (25-34) pg MCHC (32-36) g/dL RDW Std Deviation (36.4-46.3) fL RDW Coeff of Roscoe (11.5-14.5) % Plt Count (130-400) K/uL MPV (7.4-10.4) fL Immature Gran % (Auto) % Neut % (Auto) % Lymph % (Auto) % Garden % (Auto) % Eos % (Auto) % Baso % (Auto) % Neut # (Auto) (1.4-6.5) K/uL Lymph # (Auto) (1.2-3.4) K/uL Garden # (Auto) (0.11-0.59) K/uL Eos # (Auto) (0-0.5) K/uL Baso # (Auto) (0-0.2) K/uL Immature Gran # (Auto) (0.00-0.02) K/uL PT (9.0-12.0) Seconds INR (0.9-1.1) APTT (21.0-31.0) Seconds PTT Ratio Sodium 138 (136-145) mmol/L Potassium 4.0 (3.5-5.1) mmol/L Chloride 105 (98-107) mmol/L Carbon Dioxide 28 (21-32) mmol/L Anion Gap 5.0 (3-11) BUN 19 H (7-18) mg/dl Creatinine 0.79 (0.6-1.4) mg/dl Est Cr Clr Drug Dosing 153.4 ml/min Est GFR ( Amer) 121.4 Est GFR (Non-Af Amer) 104.7 BUN/Creatinine Ratio 23.5 H (10-20) Glucose 111 H (70-99) mg/dl Estimat Average Glucose 123 mg/dl Hemoglobin A1c 5.9 H (4.5-5.6) % Calcium 9.3 (8.5-10.1) mg/dl Albumin 3.4 (3.4-5.0) gm/dl Urine Color Yellow Urine Appearance Clear (Clear) Urine pH 5.0 (4.5-7.5) Ur Specific Kinde 1.025 (1.000-1.030) Urine Protein Negative (Negative) Urine Glucose (UA) Negative (Negative) Urine Ketones Trace H (Negative) Urine Blood Negative (Negative) Urine Nitrite Negative (Negative) Urine Bilirubin Negative (Negative) Urine Urobilinogen Negative (Negative) Ur Leukocyte Esterase Negative (Negative) COVID-19 Eval Order SARS-CoV-2, RNA, NAAT (NEGATIVE) Blood Type Antibody Screen 01/28/21 01/28/21 01/29/21 Range/Units 07:46 07:46 06:15 WBC 5.78 (4.8-10.8) K/uL RBC 4.54 L (4.7-6.1) M/uL Hgb 14.1 (14.0-18.0) g/dL Hct 40.7 L (42-52) % MCV 89.6 (80-100) fL MCH 31.1 (25-34) pg MCHC 34.6 (32-36) g/dL RDW Std Deviation 46.4 H (36.4-46.3) fL RDW Coeff of Roscoe 14.1 (11.5-14.5) % Plt Count 227 (130-400) K/uL MPV 10.1 (7.4-10.4) fL Immature Gran % (Auto) 0.2 % Neut % (Auto) 78.9 % Lymph % (Auto) 11.6 % Garden % (Auto) 9.3 % Eos % (Auto) 0.0 % Baso % (Auto) 0.0 % Neut # (Auto) 4.56 (1.4-6.5) K/uL Lymph # (Auto) 0.67 L (1.2-3.4) K/uL Garden # (Auto) 0.54 (0.11-0.59) K/uL Eos # (Auto) 0.00 (0-0.5) K/uL Baso # (Auto) 0.00 (0-0.2) K/uL Immature Gran # (Auto) 0.01 (0.00-0.02) K/uL PT (9.0-12.0) Seconds INR (0.9-1.1) APTT (21.0-31.0) Seconds PTT Ratio Sodium (136-145) mmol/L Potassium (3.5-5.1) mmol/L Chloride (98-107) mmol/L Carbon Dioxide (21-32) mmol/L Anion Gap (3-11) BUN (7-18) mg/dl Creatinine (0.6-1.4) mg/dl Est Cr Clr Drug Dosing ml/min Est GFR ( Amer) Est GFR (Non-Af Amer) BUN/Creatinine Ratio (10-20) Glucose (70-99) mg/dl Estimat Average Glucose mg/dl Hemoglobin A1c (4.5-5.6) % Calcium (8.5-10.1) mg/dl Albumin (3.4-5.0) gm/dl Urine Color Urine Appearance (Clear) Urine pH (4.5-7.5) Ur Specific Kinde (1.000-1.030) Urine Protein (Negative) Urine Glucose (UA) (Negative) Urine Ketones (Negative) Urine Blood (Negative) Urine Nitrite (Negative) Urine Bilirubin (Negative) Urine Urobilinogen (Negative) Ur Leukocyte Esterase (Negative) COVID-19 Eval Order Covid19 [facility] SARS-CoV-2, RNA, NAAT NEGATIVE (NEGATIVE) Blood Type Antibody Screen 01/29/21 Range/Units 06:15 WBC (4.8-10.8) K/uL RBC (4.7-6.1) M/uL Hgb (14.0-18.0) g/dL Hct (42-52) % MCV (80-100) fL MCH (25-34) pg MCHC (32-36) g/dL RDW Std Deviation (36.4-46.3) fL RDW Coeff of Roscoe (11.5-14.5) % Plt Count (130-400) K/uL MPV (7.4-10.4) fL Immature Gran % (Auto) % Neut % (Auto) % Lymph % (Auto) % Garden % (Auto) % Eos % (Auto) % Baso % (Auto) % Neut # (Auto) (1.4-6.5) K/uL Lymph # (Auto) (1.2-3.4) K/uL Garden # (Auto) (0.11-0.59) K/uL Eos # (Auto) (0-0.5) K/uL Baso # (Auto) (0-0.2) K/uL Immature Gran # (Auto) (0.00-0.02) K/uL PT (9.0-12.0) Seconds INR (0.9-1.1) APTT (21.0-31.0) Seconds PTT Ratio Sodium 138 (136-145) mmol/L Potassium 4.4 (3.5-5.1) mmol/L Chloride 105 (98-107) mmol/L Carbon Dioxide 32 (21-32) mmol/L Anion Gap 1.0 L (3-11) BUN 16 (7-18) mg/dl Creatinine 0.82 (0.6-1.4) mg/dl Est Cr Clr Drug Dosing 148.1 ml/min Est GFR ( Amer) 119.5 Est GFR (Non-Af Amer) 103.1 BUN/Creatinine Ratio 19.8 (10-20) Glucose 125 H (70-99) mg/dl Estimat Average Glucose mg/dl Hemoglobin A1c (4.5-5.6) % Calcium 8.3 L (8.5-10.1) mg/dl Albumin (3.4-5.0) gm/dl Urine Color Urine Appearance (Clear) Urine pH (4.5-7.5) Ur Specific Kinde (1.000-1.030) Urine Protein (Negative) Urine Glucose (UA) (Negative) Urine Ketones (Negative) Urine Blood (Negative) Urine Nitrite (Negative) Urine Bilirubin (Negative) Urine Urobilinogen (Negative) Ur Leukocyte Esterase (Negative) COVID-19 Eval Order SARS-CoV-2, RNA, NAAT (NEGATIVE) Blood Type Antibody Screen Total Time Total Time Spent Total Time Spent (In Minutes): 20 Discharge Plan Discharge Items Patient Disposition: Home - Self-Care Reason For Visit: Primary Osteoarthritis, Right Shoulder Discharge Diagnosis: Osteoarthritis Right Shoulder Activity: Per Instructions section Weightbearing: Right non-weightbearing Non-emergency contact: Surgeon Call non-emergency contact if: you have any medication questions, your pain is not controlled, your temperature is above 101.5, your wound has increased redness and your wound has increased drainage Follow-up/Referrals: PCP,NO [Primary Care Provider] - Diet: Regular Addtl Attending Provider Instructions: ACTIVITY RECOMMENDATIONS: SELF CARE INSTRUCTIONS AFTER TOTAL SHOULDER ARTHROPLASTY A. You may do daily exercises as taught in physical therapy while in hospital. No lifting with the operative arm. Please schedule your outpatient physical therapy appointment to begin within 2-3 days after leaving the hospital. Specific restrictions will be written on your physical therapy prescription that is provided to you. B. You are to wear your sling/immobilizer at all times EXCEPT when performing your daily exercises, participating in physical therapy and for hygiene purposes. C. You may perform dry, daily dressing changes. Please keep your incision covered. You may shower 48 hours after surgery. Do not apply soap or any ointment/lotions directly over incision. Do not soak incision in bath tub/swimming pool. D. You may use ice as needed to operative shoulder. SPECIAL CARE INSTRUCTIONS: MEDICATION INSTRUCTIONS: VERY IMPORTANT TO READ AND REVIEW A. There are a few signs you need to watch for after you are home. Call [facility] at [phone] if you experience any of the followin. Increased severe shoulder pain. Some pain is expected especially when you exercise. 2. Increased swelling in you shoulder or arm; pain or swelling in either upper extremity. 3. Any fluid drainage from the incision. 4. Shortness of breath or chest pain. B. Please call [facility] at [phone] if you have any questions or concerns about your operation or recovery. C. Call your physician if: 1. Temperature is greater than 101 degrees (F). 2. Pain is not relieved by prescribed pain medications. 3. Increase drainage or redness from incision. 4. Unanswered questions or concerns. FOLLOW UP VISIT: Please call [facility] at [phone] to schedule a follow up appointment with Dr. Terrell or his PA in 12-14 days from your surgery date. Stand-Alone Forms: [facility], [facility], Smoking Cessation Medications and DC Order Prescriptions: New acetaminophen 500 mg Tablet 1,000 mg PO Q8 14 Days Qty: 84 RF: 0 cefadroxil 500 mg capsule 500 mg PO BID Qty: 28 RF: 1 oxycodone 5 mg Tablet 5 mg PO Q4H MDD 6 PRN (Reason: pain) Qty: 30 RF: 0 Continued azathioprine [Imuran] 50 mg Tablet 75 mg PO HS RF: 0 azathioprine [Imuran] 50 mg Tablet 50 mg PO BID RF: 0 sertraline [Zoloft] 50 mg Tablet 50 mg PO QAM RF: 0 Discharge Orders: Discharge Order (Routine); Ordered 01/29/21 Ordered By: Gonzalez Oneill/Other Patient Handouts: DVT Post Op Prevention, Preventing Deep Vein Thrombosis, After Reverse Total Shoulder ..., Having Reverse Total Shoulder ..., Reverse Total Shoulder Replacement Admission Data Admit Date/Time: 01/28/21 14:19 Attending Provider: Josué Terrell Admit Provider: Josué Terrell Primary Care Provider: PCP,NO Other Providers: Sandeep Liang. Other Interventions: Discharge Summary Assessment (RN) Last Done: 01/29/21 09:12
== END 2021-01-29 15:58 | disposition home or self-care (01) ==
LOC: PAT 07:24 → INTOOBSV 14:19 → 3E 14:19